=== PATIENT | female | born 1935 ===

== ENCOUNTER 2019-09-08 13:29 | Inpatient (IN) | payer OTHER ==
[~2019-09-08] VITALS: Ht 154.9 cm; Wt 60.8 kg
--- NOTE | 2019-09-08 13:39 | NUR ---
SE RECIBE PTE ALERTA Y ORIENTADA X3,REFIERE HABERSE CAIDO EN CAMPTON ,SE ALMA EN LA CADERA IZQUIERDA ,REFIERE GERSON DOLOR NO PUEDE MANTENERSE SENTADA.
--- NOTE | 2019-09-08 15:38 | NUR ---
SE ORIENTA A PT SOBRE TX REFIERE ENTENDER. SE LE COLECTAN MUESTRAS BAJO MEDIDAS ASEPTICAS, SE CANALIZA Y SE LE ADMINISTRAN MEDICAMENTOS REBECCA PRESCRITOS.
--- NOTE | 2019-09-08 16:47 | NUR ---
PT RE EVALUADA POR DR PELLETIER QUIEN SE CONSULTA A PTE CON DR MERIDA Y MARGOT HARDING. SE ORIENTA A PT SOBRE EL MISMO, REFIERE ENTENDER. SE LE COLECTAN MUESTRAS BAJO MEDIDAS ASEPTICAS Y SE LE INSERTA SONDA URINARIA #16 BAJO MEDIDAS ESTERILES, PT TOLERA.
--- NOTE | 2019-09-09 07:05 | NUR ---
SE RECIBE AL PACIENTE DE TURNO ANTERIOR, ALERTA Y ORIENTADO EN KENDY THA ESFERAS. PACIENTE EN CAMA AL NIVEL MAS BAJO, FRENOS COLOCADOS Y CABECERA A 30 GRADOS. PACIENTE CON H/L Y FOLLKARISHMA (09/08/2019) PATENTES. PACIENTE CONSULTADO CON DRA. LOOMIS Y DR. MERIDA.
--- NOTE | 2019-09-09 07:46 | NUR ---
SE ORIENTA AL PACIENTE SOBRE IV FLUID DE 0.9%NSS DE 1000ML BAJANDOA 100ML/HR. Y PACIENTE REFIERE ENTENDER. SE PROVEE EL MISMO. PACIENTE RECIBE VISITA DEL DR. MERIDA Y EL MISMO EVALUA AL MISMO.
--- NOTE | 2019-09-09 08:34 | NUR ---
DR MERIDA ORDENA A NO SHERICE MUESTRAS DE LABORATORIO QUE YA HAYAN SIDO TOMADAS EN CHARMAINE DE EMERGENCIAS Y TYPE AND CROSSMATCH DE 2 PRBC SERA EN HOLD.
[2019-09-11] MEDS ORDERED: ELIQUIS2.5 MG PO (08:20)
[2019-09-11] MEDS ORDERED: DUI500 PO (08:20)
[2019-09-11] MEDS ORDERED: ULTRACET PO (08:20)
[2019-09-13] MEDS ORDERED: ELIQUIS2.5 MG PO ×2 (07:14→07:16)
[2019-09-13] MEDS ORDERED: ULTRACET PO (07:14)
== END 2019-09-13 10:11 | disposition home or self-care (01) | DRG 481 ==
LOC: ER 13:29 → SEC-K 09-09 08:10 → SURH 09-09 08:10
PROVIDERS: ADMIT Orthopaedic Surgery
PROC: 0QS736Z Reposition Left Upper Femur with Intramedullary Internal Fixation Device, Percutaneous Approach (ICD-10-PCS; principal; 2019-09-09 16:15)
PROC: 30233N1 Transfusion of Nonautologous Red Blood Cells into Peripheral Vein, Percutaneous Approach (ICD-10-PCS; 2019-09-11)
DX: S72.142A Displaced intertrochanteric fracture of left femur, initial encounter for closed fracture (principal); D62 Acute posthemorrhagic anemia; W18.30XA Fall on same level, unspecified, initial encounter; F01.50 Vascular dementia, unspecified severity, without behavioral disturbance, psychotic disturbance, mood disturbance, and anxiety; M81.0 Age-related osteoporosis without current pathological fracture; F03.90 Unspecified dementia, unspecified severity, without behavioral disturbance, psychotic disturbance, mood disturbance, and anxiety; Z79.01 Long term (current) use of anticoagulants

== ENCOUNTER 2021-04-06 08:08 | Outpatient (CLI) | payer OTHER ==
[~2021-04-06 08:08] MED LIST: DUI500 PO; ELIQUIS2.5 MG PO; ULTRACET PO
== END 2021-04-06 08:23 | disposition home or self-care (01) ==
LOC: SONOGRAMA 08:08
PROVIDERS: ATTEND Pediatrics Neonatal-Perinatal Medicine
DX: K80.80 Other cholelithiasis without obstruction (principal); I10 Essential (primary) hypertension; F06.4 Anxiety disorder due to known physiological condition; G31.84 Mild cognitive impairment of uncertain or unknown etiology; G63 Polyneuropathy in diseases classified elsewhere; I67.2 Cerebral atherosclerosis; G31.1 Senile degeneration of brain, not elsewhere classified; Z13.21 Encounter for screening for nutritional disorder; E55.9 Vitamin D deficiency, unspecified; R79.82 Elevated C-reactive protein (CRP); R03.0 Elevated blood-pressure reading, without diagnosis of hypertension; Z13.6 Encounter for screening for cardiovascular disorders; D17.20 Benign lipomatous neoplasm of skin and subcutaneous tissue of unspecified limb; E88.89 Other specified metabolic disorders; Z68.1 Body mass index [BMI] 19.9 or less, adult

== ENCOUNTER → 2021-04-15 08:17 | Outpatient (CLI) | payer OTHER | END | disposition home or self-care (01) | LOC: NUCLEAR 08:00 | PROVIDERS: ATTEND Internal Medicine | DX: I73.9 Peripheral vascular disease, unspecified (principal) ==

== ENCOUNTER 2021-10-04 20:02 | Emergency (ER) | payer OTHER ==
[~2021-10-04] VITALS: Ht 157.5 cm; Wt 51.3 kg
[2021-10-04] MEDS ORDERED: [UNRECOGNIZED DRUG - REMARK] (20:11)
[2021-10-04] MEDS ORDERED: DICLOFENAC SODI75 MG PO (22:55)
== END 2021-10-04 23:06 | disposition home or self-care (01) ==
LOC: ER 20:02
DX: S30.0XXA Contusion of lower back and pelvis, initial encounter (principal); S80.01XA Contusion of right knee, initial encounter; S70.01XA Contusion of right hip, initial encounter; S60.221A Contusion of right hand, initial encounter; W01.0XXA Fall on same level from slipping, tripping and stumbling without subsequent striking against object, initial encounter; Y92.019 Unspecified place in single-family (private) house as the place of occurrence of the external cause; G30.9 Alzheimer's disease, unspecified; F02.80 Dementia in other diseases classified elsewhere, unspecified severity, without behavioral disturbance, psychotic disturbance, mood disturbance, and anxiety